=== PATIENT | male | born 1955 | race Caucasian/White ===

== ENCOUNTER → 2019-08-11 | Outpatient (CLI) | payer BC | END | disposition home or self-care (01) | LOC: LAB SHORT 15:59 → LAB EV 15:59 | DX: L97.529 Non-pressure chronic ulcer of other part of left foot with unspecified severity (principal) | CPT/HCPCS: 87070; 87077; 87147; 87186; 87205 ==

== ENCOUNTER 2019-09-12 08:38 | Day surgery (SDC) | payer BC | END 2019-09-12 23:26 | disposition home or self-care (01) | LOC: WOUND 08:38 | DX: E11.621 Type 2 diabetes mellitus with foot ulcer (principal); E11.40 Type 2 diabetes mellitus with diabetic neuropathy, unspecified; L97.522 Non-pressure chronic ulcer of other part of left foot with fat layer exposed; I10 Essential (primary) hypertension; G47.33 Obstructive sleep apnea (adult) (pediatric); E78.1 Pure hyperglyceridemia; Z79.899 Other long term (current) drug therapy; Z79.4 Long term (current) use of insulin | CPT/HCPCS: G0463 ==

== ENCOUNTER 2019-09-18 13:47 | Day surgery (SDC) | payer BC | END 2019-09-18 22:49 | disposition home or self-care (01) | LOC: WOUND 13:47 | DX: E11.621 Type 2 diabetes mellitus with foot ulcer (principal); L97.522 Non-pressure chronic ulcer of other part of left foot with fat layer exposed; E11.52 Type 2 diabetes mellitus with diabetic peripheral angiopathy with gangrene; I96 Gangrene, not elsewhere classified; E11.40 Type 2 diabetes mellitus with diabetic neuropathy, unspecified; E55.9 Vitamin D deficiency, unspecified; E78.1 Pure hyperglyceridemia; G47.33 Obstructive sleep apnea (adult) (pediatric); I10 Essential (primary) hypertension; I25.10 Atherosclerotic heart disease of native coronary artery without angina pectoris; E11.36 Type 2 diabetes mellitus with diabetic cataract; H26.9 Unspecified cataract; M10.9 Gout, unspecified; F41.8 Other specified anxiety disorders ==

== ENCOUNTER 2019-09-24 00:16 | Day surgery (SDC) | payer BC | END 2019-09-24 23:03 | disposition home or self-care (01) | LOC: WOUND 00:16 | DX: E11.621 Type 2 diabetes mellitus with foot ulcer (principal); E11.40 Type 2 diabetes mellitus with diabetic neuropathy, unspecified; L97.422 Non-pressure chronic ulcer of left heel and midfoot with fat layer exposed; G47.33 Obstructive sleep apnea (adult) (pediatric); I10 Essential (primary) hypertension; I25.10 Atherosclerotic heart disease of native coronary artery without angina pectoris | CPT/HCPCS: 87070; 87075; 87205 ==

== ENCOUNTER 2019-10-01 00:25 | Day surgery (SDC) | payer BC | END 2019-10-01 22:48 | disposition home or self-care (01) | LOC: WOUND 00:25 | DX: E11.621 Type 2 diabetes mellitus with foot ulcer (principal); L97.522 Non-pressure chronic ulcer of other part of left foot with fat layer exposed; E11.52 Type 2 diabetes mellitus with diabetic peripheral angiopathy with gangrene; I96 Gangrene, not elsewhere classified; S90.422A Blister (nonthermal), left great toe, initial encounter; E11.40 Type 2 diabetes mellitus with diabetic neuropathy, unspecified; E55.9 Vitamin D deficiency, unspecified; E78.1 Pure hyperglyceridemia; G47.33 Obstructive sleep apnea (adult) (pediatric); I10 Essential (primary) hypertension; I25.10 Atherosclerotic heart disease of native coronary artery without angina pectoris; E11.36 Type 2 diabetes mellitus with diabetic cataract; H26.9 Unspecified cataract; M10.9 Gout, unspecified; F41.8 Other specified anxiety disorders; X58.XXXA Exposure to other specified factors, initial encounter | CPT/HCPCS: Q4196 ==

== ENCOUNTER 2019-10-08 00:21 | Day surgery (SDC) | payer BC, OTHER | END 2019-10-08 23:02 | disposition home or self-care (01) | LOC: WOUND 00:21 | DX: E11.621 Type 2 diabetes mellitus with foot ulcer (principal); E11.40 Type 2 diabetes mellitus with diabetic neuropathy, unspecified; L97.522 Non-pressure chronic ulcer of other part of left foot with fat layer exposed; G47.33 Obstructive sleep apnea (adult) (pediatric); I25.10 Atherosclerotic heart disease of native coronary artery without angina pectoris; I10 Essential (primary) hypertension; Z79.899 Other long term (current) drug therapy ==

== ENCOUNTER 2019-10-15 00:19 | Day surgery (SDC) | payer BC | END 2019-10-15 22:58 | disposition home or self-care (01) | LOC: WOUND 00:19 | DX: E11.621 Type 2 diabetes mellitus with foot ulcer (principal); E11.40 Type 2 diabetes mellitus with diabetic neuropathy, unspecified; L97.529 Non-pressure chronic ulcer of other part of left foot with unspecified severity ==

== ENCOUNTER → 2019-10-28 | Day surgery (SDC) | payer BC | LOC: WOUND 12:23 | DX: L03.032 Cellulitis of left toe (principal); E11.621 Type 2 diabetes mellitus with foot ulcer; L97.522 Non-pressure chronic ulcer of other part of left foot with fat layer exposed; E11.40 Type 2 diabetes mellitus with diabetic neuropathy, unspecified; I10 Essential (primary) hypertension; G47.33 Obstructive sleep apnea (adult) (pediatric); I25.10 Atherosclerotic heart disease of native coronary artery without angina pectoris | CPT/HCPCS: 87071; 87075; 87076; 87147; 87185; 87186; 87205 ==

== ENCOUNTER 2019-11-05 01:54 | Day surgery (SDC) | payer BC | END 2019-11-05 03:35 | disposition home or self-care (01) | LOC: WOUND 01:54 | DX: E11.621 Type 2 diabetes mellitus with foot ulcer (principal); L97.522 Non-pressure chronic ulcer of other part of left foot with fat layer exposed; E11.40 Type 2 diabetes mellitus with diabetic neuropathy, unspecified; I10 Essential (primary) hypertension; I25.10 Atherosclerotic heart disease of native coronary artery without angina pectoris ==

== ENCOUNTER 2019-11-19 00:08 | Day surgery (SDC) | payer BC | END 2019-11-19 22:54 | disposition home or self-care (01) | LOC: WOUND 00:08 | DX: E11.621 Type 2 diabetes mellitus with foot ulcer (principal); E11.40 Type 2 diabetes mellitus with diabetic neuropathy, unspecified; L97.521 Non-pressure chronic ulcer of other part of left foot limited to breakdown of skin ==

== ENCOUNTER 2019-12-03 00:16 | Day surgery (SDC) | payer BC | END 2019-12-03 22:50 | disposition home or self-care (01) | LOC: WOUND 00:16 | DX: E11.621 Type 2 diabetes mellitus with foot ulcer (principal); E11.40 Type 2 diabetes mellitus with diabetic neuropathy, unspecified; I10 Essential (primary) hypertension; G47.33 Obstructive sleep apnea (adult) (pediatric); L97.522 Non-pressure chronic ulcer of other part of left foot with fat layer exposed ==

== ENCOUNTER 2019-12-29 17:24 | Emergency (ER) | payer BC, OTHER ==
[~2019-12-29] VITALS: Ht 182.9 cm; Wt 90.7 kg
[2019-12-29] MEDS ORDERED: LIPITOR80 MG PO (17:47)
[2019-12-29] MEDS ORDERED: LOSARTAN POTAS100 M1 PO (17:47)
[2019-12-29] MEDS ORDERED: AMLODIPINE BESYL5 MG PO (17:47)
[2019-12-29] MEDS ORDERED: METFORMIN HCL500 M3 PO (17:48)
[2019-12-29] MEDS ORDERED: ALLO300 PO (17:48)
[2019-12-29] MEDS ORDERED: Humulin N100 UNIT/1 SC (17:48)
[2019-12-29] MEDS ORDERED: ESOMEPRAZOLE MA40 MG PO (17:49)
[2019-12-29] MEDS ORDERED: FENO160 PO (17:49)
[2019-12-29] MEDS ORDERED: Novolin R100 UNIT/M SC (17:54)
[2019-12-29] MEDS ORDERED: ASPI325EC PO (17:55)
[2019-12-29] MEDS ORDERED: Carvedilol25 MG PO (17:55)
[2019-12-29 17:57] LABS: BASOPHILS ABSOLUTE AUTO 0.04 K/mm3 (0.00-0.23); BASOPHILS PERCENT AUTO 1 % (0-2); EOSINOPHILS ABSOLUTE AUTO 0.02 K/mm3 (0.00-0.68); EOSINOPHILS PERCENT AUTO 0 % (0-6); Hemoglobin 11.9 g/dL (13.5-17.5); IMMATURE GRAN ABSOLUTE AUTO 0.02 K/mm3 (0.00-0.10); IMMATURE GRAN PERCENT AUTO 0 % (0-1); LYMPHOCYTES ABSOLUTE AUTO 0.94 K/mm3 (0.84-5.20); LYMPHOCYTES PERCENT AUTO 13 % (21-46); MONOCYTES ABSOLUTE AUTO 0.92 K/mm3 (0.16-1.47); MONOCYTES PERCENT AUTO 13 % (4-13); Mean Corpuscular HGB 27.9 pg (26.0-34.0); Mean Corpuscular HGB Conc 32.2 g/dL (31.5-36.5); Mean Corpuscular Volume 87 fL (80-100); NEUTROPHILS ABSOLUTE AUTO 5.26 K/mm3 (1.96-9.15); NEUTROPHILS PERCENT AUTO 73 % (41-73); Platelet Count 198 K/mm3 (150-400); RDW Coefficient Variation 14.7 % (11.7-14.2); RDW Standard Deviation 46.8 fL (35.1-46.3); Red Blood Cell Count 4.27 M/mm3 (4.30-5.90)
[2019-12-29 18:18] LABS: Alanine Aminotransfer (ALT/SGP 46 U/L (12-78); Albumin, Blood 3.5 g/dL (3.4-5.0); Albumin/Globulin Ratio 0.8 (0.8-1.8); Alk Phos 59 U/L (50-136); Anion Gap 5 mmol/L (6-16); Aspartate Aminotrans (AST/SGOT 49 U/L (12-37); Bilirubin, Total 0.7 mg/dL (0.1-1.0); Blood Urea Nitrogen 19 mg/dL (8-24); Bun/Creatinine Ratio 26.9 (12.0-20.0); CO2, Blood 27 mmol/L (21-32); Calcium, Blood 8.9 mg/dL (8.5-10.1); Chloride, Blood 100 mmol/L (98-108); Creatinine, Blood 0.71 mg/dL (0.60-1.20); Globulin, Blood 4.2 g/dL (2.2-4.0); Glomerular Filtration Rate >60 (60-); Glucose, Blood 243 mg/dL (70-99); Sodium, Blood 132 mmol/L (136-145); Total Protein, Blood 7.7 g/dL (6.4-8.2)
[2019-12-29] MEDS ORDERED: CEPH500 PO (18:28)
[2019-12-29] MEDS ORDERED: Bactrim Ds Tab1 EACH PO (18:28)
== END 2019-12-29 19:00 | disposition home or self-care (01) ==
LOC: ER 17:24
PROVIDERS: Emergency Medicine
DX: L03.116 Cellulitis of left lower limb (principal); S91.101A Unspecified open wound of right great toe without damage to nail, initial encounter; E11.9 Type 2 diabetes mellitus without complications; X58.XXXA Exposure to other specified factors, initial encounter; Z79.899 Other long term (current) drug therapy; Z79.82 Long term (current) use of aspirin
CPT/HCPCS: 36415; 73620; 80053; 83605; 85025; 96365; 99283-25; J0690; J7120

== ENCOUNTER 2020-01-01 08:27 | Day surgery (SDC) | payer BC ==
[~2020-01-01 08:27] MED LIST: ALLO300 PO; AMLODIPINE BESYL5 MG PO; ASPI325EC PO; Bactrim Ds Tab1 EACH PO; CEPH500 PO; Carvedilol25 MG PO; ESOMEPRAZOLE MA40 MG PO; FENO160 PO; Humulin N100 UNIT/1 SC; LIPITOR80 MG PO; LOSARTAN POTAS100 M1 PO; METFORMIN HCL500 M3 PO; Novolin R100 UNIT/M SC
[2020-01-01] MEDS ORDERED: METR500 (10:44)
[2020-01-01] MEDS ORDERED: HYDR1TAB94 PO (10:52)
[2020-01-01 11:53] LABS: BASOPHILS ABSOLUTE AUTO 0.04 K/mm3 (0.00-0.23); BASOPHILS PERCENT AUTO 1 % (0-2); EOSINOPHILS ABSOLUTE AUTO 0.07 K/mm3 (0.00-0.68); EOSINOPHILS PERCENT AUTO 1 % (0-6); Hematocrit 35.3 % (37.0-53.0); Hemoglobin 11.5 g/dL (13.5-17.5); IMMATURE GRAN ABSOLUTE AUTO 0.02 K/mm3 (0.00-0.10); IMMATURE GRAN PERCENT AUTO 0 % (0-1); LYMPHOCYTES ABSOLUTE AUTO 1.06 K/mm3 (0.84-5.20); LYMPHOCYTES PERCENT AUTO 18 % (21-46); MONOCYTES ABSOLUTE AUTO 0.61 K/mm3 (0.16-1.47); MONOCYTES PERCENT AUTO 11 % (4-13); Mean Corpuscular HGB 28.4 pg (26.0-34.0); Mean Corpuscular HGB Conc 32.6 g/dL (31.5-36.5); Mean Corpuscular Volume 87 fL (80-100); Mean Platelet Volume 11.9 fL (9.1-12.4); NEUTROPHILS ABSOLUTE AUTO 4.01 K/mm3 (1.96-9.15); NEUTROPHILS PERCENT AUTO 69 % (41-73); Platelet Count 232 K/mm3 (150-400); RDW Coefficient Variation 14.8 % (11.7-14.2); RDW Standard Deviation 47.6 fL (35.1-46.3); Red Blood Cell Count 4.05 M/mm3 (4.30-5.90); White Blood Cell Count 5.81 K/mm3 (4.00-11.30)
== END 2020-01-01 10:56 | disposition home or self-care (01) ==
LOC: RAD 08:27 → ATC 08:27
PROVIDERS: Nurse Practitioner Family
DX: L03.116 Cellulitis of left lower limb (principal); E11.621 Type 2 diabetes mellitus with foot ulcer; E11.40 Type 2 diabetes mellitus with diabetic neuropathy, unspecified
CPT/HCPCS: 73590; 73620; 85025; 85651; 86140; 96365; J0696

== ENCOUNTER 2020-01-03 00:50 | Day surgery (SDC) | payer BC ==
[~2020-01-03 00:50] MED LIST changes: +HYDR1TAB94 PO; +METR500
[2020-01-04] MEDS ORDERED: Rocephin 1g1 G/50 ML IV (11:18)
== END 2020-01-03 23:14 | disposition home or self-care (01) ==
LOC: WOUND 00:50
DX: E11.621 Type 2 diabetes mellitus with foot ulcer (principal); E11.59 Type 2 diabetes mellitus with other circulatory complications; E11.40 Type 2 diabetes mellitus with diabetic neuropathy, unspecified; L02.91 Cutaneous abscess, unspecified; L03.116 Cellulitis of left lower limb; L03.032 Cellulitis of left toe; L97.421 Non-pressure chronic ulcer of left heel and midfoot limited to breakdown of skin; L97.521 Non-pressure chronic ulcer of other part of left foot limited to breakdown of skin; Z79.899 Other long term (current) drug therapy; Z79.4 Long term (current) use of insulin

== ENCOUNTER 2020-01-04 00:08 | Day surgery (SDC) | payer BC ==
[2020-01-04] MEDS ORDERED: Rocephin 1g1 G/50 ML IV (11:18)
== END 2020-01-04 10:55 | disposition home or self-care (01) ==
LOC: ATC 00:08
DX: E11.621 Type 2 diabetes mellitus with foot ulcer (principal); E11.40 Type 2 diabetes mellitus with diabetic neuropathy, unspecified; L03.116 Cellulitis of left lower limb
CPT/HCPCS: J0696

== ENCOUNTER 2020-01-06 00:05 | Day surgery (SDC) | payer BC ==
[~2020-01-06 00:05] MED LIST changes: +Rocephin 1g1 G/50 ML IV
== END 2020-01-06 10:50 | disposition home or self-care (01) ==
LOC: ATC 00:05
DX: E11.621 Type 2 diabetes mellitus with foot ulcer (principal); E11.40 Type 2 diabetes mellitus with diabetic neuropathy, unspecified; L03.116 Cellulitis of left lower limb; Z79.4 Long term (current) use of insulin
CPT/HCPCS: J0696

== ENCOUNTER 2020-01-07 00:36 | Day surgery (SDC) | payer BC | END 2020-01-07 22:39 | disposition home or self-care (01) | LOC: WOUND 00:36 | DX: E11.621 Type 2 diabetes mellitus with foot ulcer (principal); L97.522 Non-pressure chronic ulcer of other part of left foot with fat layer exposed; E11.59 Type 2 diabetes mellitus with other circulatory complications; L03.032 Cellulitis of left toe; L02.91 Cutaneous abscess, unspecified; E11.40 Type 2 diabetes mellitus with diabetic neuropathy, unspecified; E55.9 Vitamin D deficiency, unspecified; E78.1 Pure hyperglyceridemia; G47.33 Obstructive sleep apnea (adult) (pediatric); I10 Essential (primary) hypertension; I25.10 Atherosclerotic heart disease of native coronary artery without angina pectoris ==

== ENCOUNTER 2020-01-08 00:05 | Day surgery (SDC) | payer BC | END 2020-01-08 11:00 | disposition home or self-care (01) | LOC: ATC 00:05 | DX: E11.621 Type 2 diabetes mellitus with foot ulcer (principal); E11.40 Type 2 diabetes mellitus with diabetic neuropathy, unspecified; L03.116 Cellulitis of left lower limb; L97.509 Non-pressure chronic ulcer of other part of unspecified foot with unspecified severity; Z79.4 Long term (current) use of insulin; Z79.899 Other long term (current) drug therapy | CPT/HCPCS: 96365; J0696 ==

== ENCOUNTER 2020-01-09 00:03 | Day surgery (SDC) | payer BC | END 2020-01-09 10:06 | disposition home or self-care (01) | LOC: ATC 00:03 | DX: E11.621 Type 2 diabetes mellitus with foot ulcer (principal); E11.40 Type 2 diabetes mellitus with diabetic neuropathy, unspecified; L03.116 Cellulitis of left lower limb; Z79.4 Long term (current) use of insulin; L97.529 Non-pressure chronic ulcer of other part of left foot with unspecified severity | CPT/HCPCS: 96365; J0696 ==

== ENCOUNTER 2020-01-13 00:13 | Day surgery (SDC) | payer BC | END 2020-01-13 10:55 | disposition home or self-care (01) | LOC: ATC 00:13 | DX: E11.621 Type 2 diabetes mellitus with foot ulcer (principal); L97.509 Non-pressure chronic ulcer of other part of unspecified foot with unspecified severity; E11.40 Type 2 diabetes mellitus with diabetic neuropathy, unspecified; L03.116 Cellulitis of left lower limb | CPT/HCPCS: J0696 ==

== ENCOUNTER 2020-01-14 00:09 | Day surgery (SDC) | payer BC | END 2020-01-14 22:38 | disposition home or self-care (01) | LOC: WOUND 00:09 | DX: E11.621 Type 2 diabetes mellitus with foot ulcer (principal); E11.59 Type 2 diabetes mellitus with other circulatory complications; E11.40 Type 2 diabetes mellitus with diabetic neuropathy, unspecified; L02.91 Cutaneous abscess, unspecified; L03.032 Cellulitis of left toe; G47.33 Obstructive sleep apnea (adult) (pediatric); I10 Essential (primary) hypertension; L97.522 Non-pressure chronic ulcer of other part of left foot with fat layer exposed; Z79.899 Other long term (current) drug therapy; Z79.4 Long term (current) use of insulin; Z79.82 Long term (current) use of aspirin ==

== ENCOUNTER 2020-01-15 00:09 | Day surgery (SDC) | payer BC | END 2020-01-15 10:14 | disposition home or self-care (01) | LOC: ATC 00:09 | DX: E11.621 Type 2 diabetes mellitus with foot ulcer (principal); E11.40 Type 2 diabetes mellitus with diabetic neuropathy, unspecified; L03.116 Cellulitis of left lower limb; I25.10 Atherosclerotic heart disease of native coronary artery without angina pectoris; I10 Essential (primary) hypertension; F41.8 Other specified anxiety disorders; Z95.1 Presence of aortocoronary bypass graft; Z79.899 Other long term (current) drug therapy; Z79.4 Long term (current) use of insulin | CPT/HCPCS: 96365; J0696 ==

== ENCOUNTER 2020-01-16 00:11 | Day surgery (SDC) | payer BC | END 2020-01-16 10:55 | disposition home or self-care (01) | LOC: ATC 00:11 | DX: E11.621 Type 2 diabetes mellitus with foot ulcer (principal); E11.40 Type 2 diabetes mellitus with diabetic neuropathy, unspecified; L03.116 Cellulitis of left lower limb; F41.9 Anxiety disorder, unspecified; L97.529 Non-pressure chronic ulcer of other part of left foot with unspecified severity; Z79.4 Long term (current) use of insulin | CPT/HCPCS: 96365 ==

== ENCOUNTER 2020-01-17 00:08 | Day surgery (SDC) | payer BC | END 2020-01-17 09:13 | disposition home or self-care (01) | LOC: ATC 00:08 | DX: E11.621 Type 2 diabetes mellitus with foot ulcer (principal); E11.40 Type 2 diabetes mellitus with diabetic neuropathy, unspecified; L03.116 Cellulitis of left lower limb; L97.529 Non-pressure chronic ulcer of other part of left foot with unspecified severity; Z79.4 Long term (current) use of insulin | CPT/HCPCS: J0696 ==

== ENCOUNTER 2020-01-18 01:08 | Day surgery (SDC) | payer BC | END 2020-01-18 10:35 | disposition home or self-care (01) | LOC: ATC 01:08 | DX: E11.621 Type 2 diabetes mellitus with foot ulcer (principal); E11.40 Type 2 diabetes mellitus with diabetic neuropathy, unspecified; L03.116 Cellulitis of left lower limb; L97.529 Non-pressure chronic ulcer of other part of left foot with unspecified severity; Z79.4 Long term (current) use of insulin | CPT/HCPCS: J0696 ==

== ENCOUNTER 2020-01-19 01:52 | Day surgery (SDC) | payer BC | END 2020-01-19 10:27 | disposition home or self-care (01) | LOC: ATC 01:52 | DX: L03.032 Cellulitis of left toe (principal); E11.621 Type 2 diabetes mellitus with foot ulcer; E11.40 Type 2 diabetes mellitus with diabetic neuropathy, unspecified; E11.59 Type 2 diabetes mellitus with other circulatory complications | CPT/HCPCS: 96365; J0696 ==

== ENCOUNTER 2020-01-20 00:17 | Day surgery (SDC) | payer BC | END 2020-01-20 10:40 | disposition home or self-care (01) | LOC: ATC 00:17 | DX: L03.032 Cellulitis of left toe (principal); E11.59 Type 2 diabetes mellitus with other circulatory complications; E11.621 Type 2 diabetes mellitus with foot ulcer; E11.40 Type 2 diabetes mellitus with diabetic neuropathy, unspecified; L02.91 Cutaneous abscess, unspecified | CPT/HCPCS: 96365; J0696 ==

== ENCOUNTER 2020-01-21 00:13 | Day surgery (SDC) | payer BC | END 2020-01-21 22:54 | disposition home or self-care (01) | LOC: WOUND 00:13 | DX: E11.621 Type 2 diabetes mellitus with foot ulcer (principal); L97.529 Non-pressure chronic ulcer of other part of left foot with unspecified severity; L02.91 Cutaneous abscess, unspecified; L03.032 Cellulitis of left toe; E11.59 Type 2 diabetes mellitus with other circulatory complications; E11.40 Type 2 diabetes mellitus with diabetic neuropathy, unspecified; I25.10 Atherosclerotic heart disease of native coronary artery without angina pectoris; I10 Essential (primary) hypertension; Z79.899 Other long term (current) drug therapy; Z79.82 Long term (current) use of aspirin; Z79.4 Long term (current) use of insulin | CPT/HCPCS: G0463 ==

== ENCOUNTER 2020-01-22 00:03 | Day surgery (SDC) | payer BC ==
[2020-01-25] MEDS ORDERED: TOUJEO SOL300 UNIT/1 SQ (10:20)
[2020-01-25] MEDS ORDERED: Novolog100 UNIT/1 SQ (10:21)
== END 2020-01-22 10:41 | disposition home or self-care (01) ==
LOC: ATC 00:03
DX: L03.032 Cellulitis of left toe (principal); E11.621 Type 2 diabetes mellitus with foot ulcer; L97.509 Non-pressure chronic ulcer of other part of unspecified foot with unspecified severity; E11.40 Type 2 diabetes mellitus with diabetic neuropathy, unspecified; E11.59 Type 2 diabetes mellitus with other circulatory complications; L02.91 Cutaneous abscess, unspecified
CPT/HCPCS: 96365; J0696

== ENCOUNTER 2020-01-23 00:08 | Day surgery (SDC) | payer BC ==
[2020-01-25] MEDS ORDERED: TOUJEO SOL300 UNIT/1 SQ (10:20)
[2020-01-25] MEDS ORDERED: Novolog100 UNIT/1 SQ (10:21)
== END 2020-01-23 10:00 | disposition home or self-care (01) ==
LOC: ATC 00:08
DX: E11.621 Type 2 diabetes mellitus with foot ulcer (principal); E11.40 Type 2 diabetes mellitus with diabetic neuropathy, unspecified; L03.116 Cellulitis of left lower limb; L03.032 Cellulitis of left toe; Z79.4 Long term (current) use of insulin; L97.509 Non-pressure chronic ulcer of other part of unspecified foot with unspecified severity
CPT/HCPCS: 96365; J0696

== ENCOUNTER 2020-01-24 00:07 | Day surgery (SDC) | payer BC ==
[2020-01-25] MEDS ORDERED: TOUJEO SOL300 UNIT/1 SQ (10:20)
[2020-01-25] MEDS ORDERED: Novolog100 UNIT/1 SQ (10:21)
== END 2020-01-24 09:26 | disposition home or self-care (01) ==
LOC: ATC 00:07
DX: E11.621 Type 2 diabetes mellitus with foot ulcer (principal); E11.40 Type 2 diabetes mellitus with diabetic neuropathy, unspecified; L03.116 Cellulitis of left lower limb; L03.032 Cellulitis of left toe; L97.509 Non-pressure chronic ulcer of other part of unspecified foot with unspecified severity; Z79.4 Long term (current) use of insulin
CPT/HCPCS: 96365; J0696

== ENCOUNTER 2020-01-28 00:06 | Day surgery (SDC) | payer BC ==
[~2020-01-28 00:06] MED LIST changes: +Novolog100 UNIT/1 SQ; +TOUJEO SOL300 UNIT/1 SQ
== END 2020-01-28 10:55 | disposition home or self-care (01) ==
DX: L03.032 Cellulitis of left toe (principal); L02.91 Cutaneous abscess, unspecified; E11.621 Type 2 diabetes mellitus with foot ulcer; L97.509 Non-pressure chronic ulcer of other part of unspecified foot with unspecified severity; E11.40 Type 2 diabetes mellitus with diabetic neuropathy, unspecified; E11.59 Type 2 diabetes mellitus with other circulatory complications; M79.675 Pain in left toe(s)

== ENCOUNTER 2020-01-29 08:08 | Day surgery (SDC) | payer BC ==
--- NOTE | 2020-01-29 14:46 | NUR ---
SPOKE WITH HERMAN BENITES INSIDE ACCOUNT EXECUTIVE-C ABOUT TODAY BEING THE LAST DAY FOR ANTIBIOTICS. HERMAN WOULD LIKE PT TO DO 2 MORE WEEKS OF IV ANTIBIOTICS. PT IN AGREEMENT OF THIS PLAN.
== END 2020-01-29 14:23 | disposition home or self-care (01) ==
LOC: ATC 08:08
DX: E11.621 Type 2 diabetes mellitus with foot ulcer (principal); E11.40 Type 2 diabetes mellitus with diabetic neuropathy, unspecified; L03.116 Cellulitis of left lower limb; E11.59 Type 2 diabetes mellitus with other circulatory complications; L97.509 Non-pressure chronic ulcer of other part of unspecified foot with unspecified severity; Z79.4 Long term (current) use of insulin
CPT/HCPCS: 96365; J0696

== ENCOUNTER 2020-01-30 00:04 | Day surgery (SDC) | payer BC | END 2020-01-30 09:29 | disposition home or self-care (01) | LOC: ATC 00:04 | DX: E11.621 Type 2 diabetes mellitus with foot ulcer (principal); E11.40 Type 2 diabetes mellitus with diabetic neuropathy, unspecified; L03.116 Cellulitis of left lower limb; L97.509 Non-pressure chronic ulcer of other part of unspecified foot with unspecified severity; Z79.4 Long term (current) use of insulin | CPT/HCPCS: 96365; J0696 ==

== ENCOUNTER 2020-02-02 02:02 | Day surgery (SDC) | payer BC, OTHER | END 2020-02-02 08:37 | disposition home or self-care (01) | LOC: ATC 02:02 | DX: E11.621 Type 2 diabetes mellitus with foot ulcer (principal); L02.91 Cutaneous abscess, unspecified; L97.509 Non-pressure chronic ulcer of other part of unspecified foot with unspecified severity; L03.116 Cellulitis of left lower limb; E11.59 Type 2 diabetes mellitus with other circulatory complications; E11.40 Type 2 diabetes mellitus with diabetic neuropathy, unspecified | CPT/HCPCS: 96365; J0696 ==

== ENCOUNTER 2020-02-04 00:06 | Day surgery (SDC) | payer BC, OTHER | END 2020-02-04 08:35 | disposition home or self-care (01) | LOC: ATC 00:06 | DX: E11.621 Type 2 diabetes mellitus with foot ulcer (principal); E11.40 Type 2 diabetes mellitus with diabetic neuropathy, unspecified; L03.116 Cellulitis of left lower limb; L97.509 Non-pressure chronic ulcer of other part of unspecified foot with unspecified severity; Z79.4 Long term (current) use of insulin | CPT/HCPCS: 96365; J0696 ==

== ENCOUNTER 2020-02-04 00:09 | Day surgery (SDC) | payer BC, OTHER | END 2020-02-04 22:55 | disposition home or self-care (01) | LOC: WOUND 00:09 | DX: E11.621 Type 2 diabetes mellitus with foot ulcer (principal); E11.40 Type 2 diabetes mellitus with diabetic neuropathy, unspecified; E11.59 Type 2 diabetes mellitus with other circulatory complications; L02.91 Cutaneous abscess, unspecified; L03.032 Cellulitis of left toe; I10 Essential (primary) hypertension; L97.522 Non-pressure chronic ulcer of other part of left foot with fat layer exposed; Z79.899 Other long term (current) drug therapy; Z79.82 Long term (current) use of aspirin; Z79.4 Long term (current) use of insulin ==

== ENCOUNTER 2020-02-05 00:07 | Day surgery (SDC) | payer BC, OTHER ==
[2020-02-05 08:47] LABS: BASOPHILS ABSOLUTE AUTO 0.04 K/mm3 (0.00-0.23); BASOPHILS PERCENT AUTO 1 % (0-2); EOSINOPHILS PERCENT AUTO 2 % (0-6); Hematocrit 38.8 % (37.0-53.0); Hemoglobin 12.5 g/dL (13.5-17.5); IMMATURE GRAN ABSOLUTE AUTO 0.03 K/mm3 (0.00-0.10); IMMATURE GRAN PERCENT AUTO 1 % (0-1); LYMPHOCYTES ABSOLUTE AUTO 1.39 K/mm3 (0.84-5.20); LYMPHOCYTES PERCENT AUTO 26 % (21-46); MONOCYTES ABSOLUTE AUTO 0.43 K/mm3 (0.16-1.47); MONOCYTES PERCENT AUTO 8 % (4-13); Mean Corpuscular HGB 28.3 pg (26.0-34.0); Mean Corpuscular HGB Conc 32.2 g/dL (31.5-36.5); Mean Corpuscular Volume 88 fL (80-100); Mean Platelet Volume 11.6 fL (9.1-12.4); NEUTROPHILS ABSOLUTE AUTO 3.43 K/mm3 (1.96-9.15); NEUTROPHILS PERCENT AUTO 63 % (41-73); Platelet Count 228 K/mm3 (150-400); RDW Coefficient Variation 14.4 % (11.7-14.2); RDW Standard Deviation 45.9 fL (35.1-46.3); Red Blood Cell Count 4.42 M/mm3 (4.30-5.90); White Blood Cell Count 5.42 K/mm3 (4.00-11.30)
== END 2020-02-05 08:35 | disposition home or self-care (01) ==
LOC: ATC 00:07
PROVIDERS: Nurse Practitioner Family
DX: E11.621 Type 2 diabetes mellitus with foot ulcer (principal); L97.509 Non-pressure chronic ulcer of other part of unspecified foot with unspecified severity; E11.40 Type 2 diabetes mellitus with diabetic neuropathy, unspecified; L03.116 Cellulitis of left lower limb; E11.59 Type 2 diabetes mellitus with other circulatory complications; L02.91 Cutaneous abscess, unspecified
CPT/HCPCS: 85025; 85651; 86140; 96365; J0696

== ENCOUNTER 2020-02-06 07:53 | Day surgery (SDC) | payer BC | END 2020-02-06 08:33 | disposition home or self-care (01) | LOC: ATC 07:53 | DX: E11.621 Type 2 diabetes mellitus with foot ulcer (principal); E11.40 Type 2 diabetes mellitus with diabetic neuropathy, unspecified; L03.116 Cellulitis of left lower limb; L97.509 Non-pressure chronic ulcer of other part of unspecified foot with unspecified severity; Z79.4 Long term (current) use of insulin | CPT/HCPCS: 96365; J0696 ==

== ENCOUNTER 2020-02-07 00:44 | Day surgery (SDC) | payer BC, OTHER | END 2020-02-07 08:43 | disposition home or self-care (01) | LOC: ATC 00:44 | DX: E11.621 Type 2 diabetes mellitus with foot ulcer (principal); E11.40 Type 2 diabetes mellitus with diabetic neuropathy, unspecified; L03.116 Cellulitis of left lower limb; L97.509 Non-pressure chronic ulcer of other part of unspecified foot with unspecified severity; Z79.4 Long term (current) use of insulin | CPT/HCPCS: 96365; J0696 ==

== ENCOUNTER 2020-02-08 07:56 | Day surgery (SDC) | payer BC, OTHER | END 2020-02-08 08:33 | disposition home or self-care (01) | LOC: ATC 07:56 | DX: E11.621 Type 2 diabetes mellitus with foot ulcer (principal); E11.40 Type 2 diabetes mellitus with diabetic neuropathy, unspecified; L03.116 Cellulitis of left lower limb; Z79.4 Long term (current) use of insulin; L97.509 Non-pressure chronic ulcer of other part of unspecified foot with unspecified severity | CPT/HCPCS: 96365; J0696 ==

== ENCOUNTER 2020-02-09 00:07 | Day surgery (SDC) | payer BC, OTHER | END 2020-02-09 08:31 | disposition home or self-care (01) | LOC: ATC 00:07 | DX: E11.621 Type 2 diabetes mellitus with foot ulcer (principal); L97.509 Non-pressure chronic ulcer of other part of unspecified foot with unspecified severity; E11.40 Type 2 diabetes mellitus with diabetic neuropathy, unspecified; L03.116 Cellulitis of left lower limb; L02.91 Cutaneous abscess, unspecified; E11.59 Type 2 diabetes mellitus with other circulatory complications | CPT/HCPCS: 96365; J0696 ==

== ENCOUNTER 2020-02-11 00:08 | Day surgery (SDC) | payer BC, OTHER ==
--- NOTE | 2020-02-11 08:55 | NUR ---
PT REPORTS HE WILL RETURN TO HAVE POWERGLIDE DC'D AFTER HIS WOUND CARE APPT. TODAY WAS LAST DAY OF BRITNI
== END 2020-02-11 08:40 | disposition home or self-care (01) ==
LOC: ATC 00:08
DX: E11.621 Type 2 diabetes mellitus with foot ulcer (principal); L97.509 Non-pressure chronic ulcer of other part of unspecified foot with unspecified severity; L02.91 Cutaneous abscess, unspecified; L03.116 Cellulitis of left lower limb; E11.40 Type 2 diabetes mellitus with diabetic neuropathy, unspecified; I25.10 Atherosclerotic heart disease of native coronary artery without angina pectoris; I10 Essential (primary) hypertension
CPT/HCPCS: 96365; J0696

== ENCOUNTER 2020-02-11 00:15 | Day surgery (SDC) | payer BC | END 2020-02-11 23:36 | disposition home or self-care (01) | LOC: WOUND 00:15 | DX: E11.621 Type 2 diabetes mellitus with foot ulcer (principal); L97.522 Non-pressure chronic ulcer of other part of left foot with fat layer exposed; E11.59 Type 2 diabetes mellitus with other circulatory complications; E11.40 Type 2 diabetes mellitus with diabetic neuropathy, unspecified; I25.10 Atherosclerotic heart disease of native coronary artery without angina pectoris; I10 Essential (primary) hypertension ==

== ENCOUNTER 2020-02-18 00:07 | Day surgery (SDC) | payer BC | END 2020-02-18 23:09 | disposition home or self-care (01) | LOC: WOUND 00:07 | DX: E11.621 Type 2 diabetes mellitus with foot ulcer (principal); E11.59 Type 2 diabetes mellitus with other circulatory complications; E11.40 Type 2 diabetes mellitus with diabetic neuropathy, unspecified; I10 Essential (primary) hypertension; G47.33 Obstructive sleep apnea (adult) (pediatric); L97.522 Non-pressure chronic ulcer of other part of left foot with fat layer exposed; Z79.899 Other long term (current) drug therapy; Z79.4 Long term (current) use of insulin ==

== ENCOUNTER 2020-02-25 00:21 | Day surgery (SDC) | payer BC | END 2020-02-25 22:39 | disposition home or self-care (01) | LOC: WOUND 00:21 | DX: E11.621 Type 2 diabetes mellitus with foot ulcer (principal); L97.529 Non-pressure chronic ulcer of other part of left foot with unspecified severity; E11.59 Type 2 diabetes mellitus with other circulatory complications; E11.40 Type 2 diabetes mellitus with diabetic neuropathy, unspecified; I25.10 Atherosclerotic heart disease of native coronary artery without angina pectoris; I10 Essential (primary) hypertension; F41.9 Anxiety disorder, unspecified; G47.30 Sleep apnea, unspecified ==

== ENCOUNTER 2020-03-03 00:18 | Day surgery (SDC) | payer BC | END 2020-03-03 23:17 | disposition home or self-care (01) | LOC: WOUND 00:18 | DX: E11.621 Type 2 diabetes mellitus with foot ulcer (principal); E11.59 Type 2 diabetes mellitus with other circulatory complications; E11.40 Type 2 diabetes mellitus with diabetic neuropathy, unspecified; G47.33 Obstructive sleep apnea (adult) (pediatric); I10 Essential (primary) hypertension; L97.522 Non-pressure chronic ulcer of other part of left foot with fat layer exposed; Z79.899 Other long term (current) drug therapy; Z79.4 Long term (current) use of insulin; Z79.82 Long term (current) use of aspirin ==

== ENCOUNTER 2020-03-17 00:11 | Day surgery (SDC) | payer BC, OTHER ==
[~2020-03-17 00:11] MED LIST changes: +NOVOLOG100 UNIT/3; -Novolog100 UNIT/1 SQ; -TOUJEO SOL300 UNIT/1 SQ; +TOUJEO SOL300 UNIT/2
== END 2020-03-17 22:42 | disposition home or self-care (01) ==
LOC: WOUND 00:11
DX: E11.621 Type 2 diabetes mellitus with foot ulcer (principal); E11.59 Type 2 diabetes mellitus with other circulatory complications; E11.40 Type 2 diabetes mellitus with diabetic neuropathy, unspecified; G47.33 Obstructive sleep apnea (adult) (pediatric); I10 Essential (primary) hypertension; L97.522 Non-pressure chronic ulcer of other part of left foot with fat layer exposed; Z79.899 Other long term (current) drug therapy; Z79.4 Long term (current) use of insulin; Z79.82 Long term (current) use of aspirin

== ENCOUNTER 2020-05-05 00:11 | Day surgery (SDC) | payer BC, OTHER | END 2020-05-05 23:14 | disposition home or self-care (01) | LOC: WOUND 00:11 | DX: E11.621 Type 2 diabetes mellitus with foot ulcer (principal); E11.59 Type 2 diabetes mellitus with other circulatory complications; E11.40 Type 2 diabetes mellitus with diabetic neuropathy, unspecified; L97.522 Non-pressure chronic ulcer of other part of left foot with fat layer exposed; I10 Essential (primary) hypertension; I25.10 Atherosclerotic heart disease of native coronary artery without angina pectoris; G47.33 Obstructive sleep apnea (adult) (pediatric); Z79.899 Other long term (current) drug therapy; Z79.82 Long term (current) use of aspirin; Z79.4 Long term (current) use of insulin ==

== ENCOUNTER 2020-05-19 00:27 | Day surgery (SDC) | payer BC, OTHER | END 2020-05-19 22:40 | disposition home or self-care (01) | LOC: WOUND 00:27 | DX: E11.621 Type 2 diabetes mellitus with foot ulcer (principal); L97.522 Non-pressure chronic ulcer of other part of left foot with fat layer exposed; E11.52 Type 2 diabetes mellitus with diabetic peripheral angiopathy with gangrene; I96 Gangrene, not elsewhere classified; E11.40 Type 2 diabetes mellitus with diabetic neuropathy, unspecified; E11.36 Type 2 diabetes mellitus with diabetic cataract; H26.9 Unspecified cataract; E11.59 Type 2 diabetes mellitus with other circulatory complications; E55.9 Vitamin D deficiency, unspecified; E78.1 Pure hyperglyceridemia; G47.33 Obstructive sleep apnea (adult) (pediatric); I10 Essential (primary) hypertension; I25.10 Atherosclerotic heart disease of native coronary artery without angina pectoris; H74.90 Unspecified disorder of middle ear and mastoid, unspecified ear; M10.9 Gout, unspecified; F41.8 Other specified anxiety disorders; Z79.4 Long term (current) use of insulin; Z79.82 Long term (current) use of aspirin; Z79.899 Other long term (current) drug therapy ==

== ENCOUNTER 2020-08-03 10:02 | Day surgery (SDC) | payer OTHER | END 2020-08-03 23:21 | disposition home or self-care (01) | LOC: WOUND 10:02 | DX: E11.621 Type 2 diabetes mellitus with foot ulcer (principal); L97.522 Non-pressure chronic ulcer of other part of left foot with fat layer exposed; E11.52 Type 2 diabetes mellitus with diabetic peripheral angiopathy with gangrene; I96 Gangrene, not elsewhere classified; E11.59 Type 2 diabetes mellitus with other circulatory complications; E11.40 Type 2 diabetes mellitus with diabetic neuropathy, unspecified; E55.9 Vitamin D deficiency, unspecified; G47.33 Obstructive sleep apnea (adult) (pediatric); I10 Essential (primary) hypertension; I25.10 Atherosclerotic heart disease of native coronary artery without angina pectoris; E11.36 Type 2 diabetes mellitus with diabetic cataract; H26.9 Unspecified cataract; H74.90 Unspecified disorder of middle ear and mastoid, unspecified ear; M10.9 Gout, unspecified; F41.8 Other specified anxiety disorders; E78.1 Pure hyperglyceridemia; Z79.82 Long term (current) use of aspirin; Z79.4 Long term (current) use of insulin; Z79.899 Other long term (current) drug therapy | CPT/HCPCS: G0463 ==

== ENCOUNTER 2020-08-20 00:17 | Day surgery (SDC) | payer OTHER | END 2020-08-20 23:17 | disposition home or self-care (01) | LOC: WOUND 00:17 | DX: E11.621 Type 2 diabetes mellitus with foot ulcer (principal); E11.59 Type 2 diabetes mellitus with other circulatory complications; E11.40 Type 2 diabetes mellitus with diabetic neuropathy, unspecified; I10 Essential (primary) hypertension; G47.33 Obstructive sleep apnea (adult) (pediatric); L97.522 Non-pressure chronic ulcer of other part of left foot with fat layer exposed; Z79.899 Other long term (current) drug therapy; Z79.82 Long term (current) use of aspirin; Z79.4 Long term (current) use of insulin | CPT/HCPCS: G0463 ==

== ENCOUNTER 2020-09-02 06:44 | Day surgery (SDC) | payer OTHER | END 2020-09-02 22:53 | disposition home or self-care (01) | LOC: WOUND 06:44 | DX: E11.621 Type 2 diabetes mellitus with foot ulcer (principal); L97.522 Non-pressure chronic ulcer of other part of left foot with fat layer exposed; L97.519 Non-pressure chronic ulcer of other part of right foot with unspecified severity; E11.52 Type 2 diabetes mellitus with diabetic peripheral angiopathy with gangrene; I96 Gangrene, not elsewhere classified; E11.59 Type 2 diabetes mellitus with other circulatory complications; E11.40 Type 2 diabetes mellitus with diabetic neuropathy, unspecified; E11.36 Type 2 diabetes mellitus with diabetic cataract; H26.9 Unspecified cataract; H74.90 Unspecified disorder of middle ear and mastoid, unspecified ear; G47.30 Sleep apnea, unspecified; I25.10 Atherosclerotic heart disease of native coronary artery without angina pectoris; F41.8 Other specified anxiety disorders; M10.9 Gout, unspecified; Z79.4 Long term (current) use of insulin; Z79.82 Long term (current) use of aspirin; Z79.899 Other long term (current) drug therapy ==

== ENCOUNTER → 2020-09-03 | Outpatient (CLI) | payer OTHER ==
[2020-09-04 11:51] LABS: Stool Occult Bld Immuno 1 Negative (NEGATIVE)
== END | disposition home or self-care (01) ==
LOC: LAB SHORT 08:10 → LAB EV 08:10 → LAB SHORT 13:37
PROVIDERS: Physician Assistant
DX: D64.9 Anemia, unspecified (principal)
CPT/HCPCS: 82274

== ENCOUNTER 2020-09-25 02:08 | Day surgery (SDC) | payer OTHER, SELFPAY ==
[2020-11-04] MEDS ORDERED: Nexium40 MG PO (14:06)
[2020-11-04] MEDS ORDERED: TRULICITY1.5 MG/0.1 SC (14:06)
[2020-11-04] MEDS ORDERED: TOUJEO SOL300 UNIT/2 SC (14:07)
== END 2020-09-25 23:57 | disposition home or self-care (01) ==
LOC: WOUND 02:08
DX: E11.621 Type 2 diabetes mellitus with foot ulcer (principal); L97.522 Non-pressure chronic ulcer of other part of left foot with fat layer exposed; L97.512 Non-pressure chronic ulcer of other part of right foot with fat layer exposed; L03.031 Cellulitis of right toe; E11.59 Type 2 diabetes mellitus with other circulatory complications; E11.40 Type 2 diabetes mellitus with diabetic neuropathy, unspecified; E55.9 Vitamin D deficiency, unspecified; E78.1 Pure hyperglyceridemia; G47.33 Obstructive sleep apnea (adult) (pediatric); I10 Essential (primary) hypertension; I25.10 Atherosclerotic heart disease of native coronary artery without angina pectoris

== ENCOUNTER 2020-10-02 00:29 | Day surgery (SDC) | payer OTHER, SELFPAY ==
[2020-11-04] MEDS ORDERED: TRULICITY1.5 MG/0.1 SC (14:06)
[2020-11-04] MEDS ORDERED: Nexium40 MG PO (14:06)
[2020-11-04] MEDS ORDERED: TOUJEO SOL300 UNIT/2 SC (14:07)
== END 2020-10-02 22:48 | disposition home or self-care (01) ==
LOC: WOUND 00:29
DX: E11.621 Type 2 diabetes mellitus with foot ulcer (principal); L97.522 Non-pressure chronic ulcer of other part of left foot with fat layer exposed; L97.512 Non-pressure chronic ulcer of other part of right foot with fat layer exposed; E11.59 Type 2 diabetes mellitus with other circulatory complications; E11.40 Type 2 diabetes mellitus with diabetic neuropathy, unspecified; L03.031 Cellulitis of right toe; G47.33 Obstructive sleep apnea (adult) (pediatric); I10 Essential (primary) hypertension; I25.10 Atherosclerotic heart disease of native coronary artery without angina pectoris

== ENCOUNTER 2020-10-14 00:13 | Day surgery (SDC) | payer OTHER, SELFPAY ==
[2020-11-04] MEDS ORDERED: TRULICITY1.5 MG/0.1 SC (14:06)
[2020-11-04] MEDS ORDERED: Nexium40 MG PO (14:06)
[2020-11-04] MEDS ORDERED: TOUJEO SOL300 UNIT/2 SC (14:07)
== END 2020-10-14 23:45 | disposition home or self-care (01) ==
LOC: WOUND 00:13
DX: E11.621 Type 2 diabetes mellitus with foot ulcer (principal); L97.521 Non-pressure chronic ulcer of other part of left foot limited to breakdown of skin; E11.59 Type 2 diabetes mellitus with other circulatory complications; E11.40 Type 2 diabetes mellitus with diabetic neuropathy, unspecified; L97.512 Non-pressure chronic ulcer of other part of right foot with fat layer exposed; E55.9 Vitamin D deficiency, unspecified; E78.1 Pure hyperglyceridemia; I10 Essential (primary) hypertension; G47.33 Obstructive sleep apnea (adult) (pediatric); I25.10 Atherosclerotic heart disease of native coronary artery without angina pectoris; L84 Corns and callosities
CPT/HCPCS: A9270

== ENCOUNTER 2020-10-26 00:28 | Day surgery (SDC) | payer OTHER ==
[2020-11-04] MEDS ORDERED: TRULICITY1.5 MG/0.1 SC (14:06)
[2020-11-04] MEDS ORDERED: Nexium40 MG PO (14:06)
[2020-11-04] MEDS ORDERED: TOUJEO SOL300 UNIT/2 SC (14:07)
== END 2020-10-26 23:59 | disposition home or self-care (01) ==
LOC: WOUND 00:28
DX: E11.621 Type 2 diabetes mellitus with foot ulcer (principal); L97.512 Non-pressure chronic ulcer of other part of right foot with fat layer exposed; E11.40 Type 2 diabetes mellitus with diabetic neuropathy, unspecified; E11.59 Type 2 diabetes mellitus with other circulatory complications; E78.1 Pure hyperglyceridemia; I10 Essential (primary) hypertension; I25.10 Atherosclerotic heart disease of native coronary artery without angina pectoris; L84 Corns and callosities; Z86.19 Personal history of other infectious and parasitic diseases

== ENCOUNTER 2020-11-05 06:02 | Day surgery (SDC) | payer OTHER ==
[~2020-11-05] VITALS: Ht 188 cm; Wt 123.0 kg
[~2020-11-05 06:02] MED LIST changes: +Nexium40 MG PO; +TOUJEO SOL300 UNIT/2 SC; +TRULICITY1.5 MG/0.1 SC
[2020-11-05 07:55] LABS: Anion Gap 6 mmol/L (6-16); Blood Urea Nitrogen 18 mg/dL (8-24); Bun/Creatinine Ratio 25.8 (12.0-20.0); CO2, Blood 29 mmol/L (21-32); Calcium, Blood 9.2 mg/dL (8.5-10.1); Chloride, Blood 105 mmol/L (98-108); Glomerular Filtration Rate >60 (60-); Glucose, Blood 142 mg/dL (70-99); Potassium, Blood 4.1 mmol/L (3.5-5.5); Sodium, Blood 140 mmol/L (136-145)
[2020-11-05 08:00] LABS: International Normalized Ratio 0.97; Prothrombin Time Results 10.4 Sec (9.7-11.5)
[2020-11-05 08:13] LABS: BASOPHILS ABSOLUTE AUTO 0.06 K/mm3 (0.00-0.23); BASOPHILS PERCENT AUTO 1 % (0-2); EOSINOPHILS ABSOLUTE AUTO 0.09 K/mm3 (0.00-0.68); EOSINOPHILS PERCENT AUTO 1 % (0-6); Hematocrit 40.7 % (37.0-53.0); Hemoglobin 13.4 g/dL (13.5-17.5); IMMATURE GRAN ABSOLUTE AUTO 0.04 K/mm3 (0.00-0.10); IMMATURE GRAN PERCENT AUTO 1 % (0-1); LYMPHOCYTES ABSOLUTE AUTO 1.46 K/mm3 (0.84-5.20); LYMPHOCYTES PERCENT AUTO 23 % (21-46); MONOCYTES ABSOLUTE AUTO 0.62 K/mm3 (0.16-1.47); MONOCYTES PERCENT AUTO 10 % (4-13); Mean Corpuscular HGB 27.2 pg (26.0-34.0); Mean Corpuscular HGB Conc 32.9 g/dL (31.5-36.5); Mean Corpuscular Volume 83 fL (80-100); NEUTROPHILS ABSOLUTE AUTO 4.07 K/mm3 (1.96-9.15); NEUTROPHILS PERCENT AUTO 64 % (41-73); RDW Coefficient Variation 14.8 % (11.7-14.2); RDW Standard Deviation 44.8 fL (35.1-46.3); Red Blood Cell Count 4.92 M/mm3 (4.30-5.90); White Blood Cell Count 6.34 K/mm3 (4.00-11.30)
[2020-11-05 08:14] LABS: Mean Platelet Volume 11.5 fL (9.1-12.4); Platelet Count 200 K/mm3 (150-400)
--- NOTE | 2020-11-05 09:49 | NUR ---
PT RETURNED TO PROCEDURE ROOM IN BED. LEFT FEMORAL GROIN SITE SOFT NON-TENDER WITH NO HEMATOMA, NO PULSATILE BLEEDING WITH SLIGHT TRACK OOZING NOTED INTACT DRESSING AND TEGADERM. CALL LIGHT IN REACH. PT DENIES BACK OR CHEST PAIN.
--- NOTE | 2020-11-05 12:24 | NUR ---
NO CHANGES TO LEFT GROIN SITE. DISCHARGE INSTRUCTIONS REVIEWED ALL QUESTIONS ANSWERED. 20 IV DISCONTINUED FROM LEFT AC WITH INTACT CANNULA. PT AMBULATED TO BR TO VOID. PT ESCORTED OUT VIA WHEELCHAIR ESCORT.
== END 2020-11-05 12:20 | disposition home or self-care (01) ==
LOC: MHTC 06:02
PROVIDERS: Radiology Diagnostic Radiology
DX: I70.213 Atherosclerosis of native arteries of extremities with intermittent claudication, bilateral legs (principal); I25.10 Atherosclerotic heart disease of native coronary artery without angina pectoris; E11.51 Type 2 diabetes mellitus with diabetic peripheral angiopathy without gangrene; E11.40 Type 2 diabetes mellitus with diabetic neuropathy, unspecified; I10 Essential (primary) hypertension; L97.511 Non-pressure chronic ulcer of other part of right foot limited to breakdown of skin; Z88.7 Allergy status to serum and vaccine; Z88.8 Allergy status to other drugs, medicaments and biological substances; Z79.82 Long term (current) use of aspirin; Z79.4 Long term (current) use of insulin
CPT/HCPCS: 37228; 37232; 75716; 75774; 80048; 85025; 85347; 85610; 99152; 99153; C1725; C1760; C1769; C1887; C1894; J1644; J2250; J3010; J7030; J7050; Q9967

== ENCOUNTER → 2021-04-05 | Outpatient (CLI) | payer MEDICARE | END | disposition home or self-care (01) | LOC: LAB SHORT 11:30 → LAB 11:30 | DX: Z48.89 Encounter for other specified surgical aftercare (principal); L97.519 Non-pressure chronic ulcer of other part of right foot with unspecified severity | CPT/HCPCS: 87070; 87077; 87186; 87205 ==

== ENCOUNTER → 2021-06-16 | Outpatient (CLI) | payer MEDICARE | END | disposition home or self-care (01) | LOC: LAB SHORT 08:52 → LAB 08:52 | DX: L97.509 Non-pressure chronic ulcer of other part of unspecified foot with unspecified severity (principal) | CPT/HCPCS: 87070; 87075; 87205 ==

== ENCOUNTER → 2021-10-11 | Outpatient (CLI) | payer MEDICARE, OTHER | END | disposition home or self-care (01) | LOC: LAB SHORT 08:05 | DX: M20.41 Other hammer toe(s) (acquired), right foot (principal) | CPT/HCPCS: 88305; 88311 ==

== ENCOUNTER 2022-01-30 05:23 | Inpatient (IN) | payer MEDICARE, OTHER ==
[~2022-01-30] VITALS: Ht 185.4 cm; Wt 132.0 kg
[2022-01-30 05:43] LABS: BASOPHILS ABSOLUTE AUTO 0.05 K/mm3 (0.00-0.23); BASOPHILS PERCENT AUTO 1 % (0-2); EOSINOPHILS ABSOLUTE AUTO 0.11 K/mm3 (0.00-0.68); EOSINOPHILS PERCENT AUTO 2 % (0-6); Hematocrit 43.5 % (37.0-53.0); Hemoglobin 14.1 g/dL (13.5-17.5); IMMATURE GRAN ABSOLUTE AUTO 0.03 K/mm3 (0.00-0.10); IMMATURE GRAN PERCENT AUTO 1 % (0-1); LYMPHOCYTES ABSOLUTE AUTO 1.24 K/mm3 (0.84-5.20); LYMPHOCYTES PERCENT AUTO 21 % (21-46); MONOCYTES ABSOLUTE AUTO 0.57 K/mm3 (0.16-1.47); MONOCYTES PERCENT AUTO 10 % (4-13); Mean Corpuscular HGB 28.5 pg (26.0-34.0); Mean Corpuscular HGB Conc 32.4 g/dL (31.5-36.5); Mean Corpuscular Volume 88 fL (80-100); Mean Platelet Volume 10.9 fL (9.1-12.4); NEUTROPHILS ABSOLUTE AUTO 4.02 K/mm3 (1.96-9.15); NEUTROPHILS PERCENT AUTO 67 % (41-73); Platelet Count 190 K/mm3 (150-400); RDW Coefficient Variation 13.9 % (11.7-14.2); RDW Standard Deviation 44.6 fL (35.1-46.3); Red Blood Cell Count 4.94 M/mm3 (4.30-5.90); White Blood Cell Count 6.02 K/mm3 (4.00-11.30)
[2022-01-30 06:22] LABS: Albumin, Blood 3.7 g/dL (3.4-5.0); Albumin/Globulin Ratio 0.9 (0.8-1.8); Bilirubin, Total 0.3 mg/dL (0.1-1.0); Bun/Creatinine Ratio 32.4 (12.0-20.0); Calcium, Blood 8.8 mg/dL (8.5-10.1); Creatinine, Blood 0.74 mg/dL (0.60-1.20); Globulin, Blood 3.9 g/dL (2.2-4.0); Total Protein, Blood 7.6 g/dL (6.4-8.2)
[2022-01-30] MEDS ORDERED: COREG25 MG PO (10:12)
[2022-01-30] MEDS ORDERED: ISOSORBIDE MONO30 MG PO (10:13)
[2022-01-30] MEDS ORDERED: FERSU300 PO (12:08)
[2022-01-30 12:55] LABS: Anti-Xa UFH, PHA Monitoring <0.10 IU/mL; International Normalized Ratio 1.04; Prothrombin Time Results 10.9 Sec (9.7-11.5)
--- NOTE | 2022-01-30 15:02 | NUR ---
REQUEST FOR RECORDS FROM [facility] FAXED TO [phone].
--- NOTE | 2022-01-30 17:47 | NUR ---
SHIFT SUMMARY: NO ACUTE EVENTS. NO CHEST DISCOMFORT REPORTED SINCE ARRIVAL FROM ED. TELEMETRY SHOWS SR WITH PVC'S IN 80'S. LUNGS CLEAR, IS ON 1 L/MIN NC "FOR COMFORT." HEPARIN INFUSING @ 15 UNITS/KG/HR (30.3 ML/HR). AMBULATING TO BR INDEPENDENTLY. CARDIAC ECHO COMPLETE. HAD VISITS FROM SEVERAL FAMILY MEMBERS. TRANSFUSION AIDE SAW PATIENT; WAITING FOR ANGIOGRAM RECORDS FROM [facility] BEFORE DECIDING NEXT STEP.
[2022-01-31 03:17] LABS: BASOPHILS ABSOLUTE AUTO 0.06 K/mm3 (0.00-0.23); BASOPHILS PERCENT AUTO 1 % (0-2); EOSINOPHILS ABSOLUTE AUTO 0.07 K/mm3 (0.00-0.68); EOSINOPHILS PERCENT AUTO 1 % (0-6); Hematocrit 43.8 % (37.0-53.0); IMMATURE GRAN ABSOLUTE AUTO 0.03 K/mm3 (0.00-0.10); IMMATURE GRAN PERCENT AUTO 0 % (0-1); LYMPHOCYTES ABSOLUTE AUTO 1.53 K/mm3 (0.84-5.20); LYMPHOCYTES PERCENT AUTO 23 % (21-46); MONOCYTES ABSOLUTE AUTO 0.63 K/mm3 (0.16-1.47); MONOCYTES PERCENT AUTO 9 % (4-13); Mean Corpuscular HGB 27.7 pg (26.0-34.0); Mean Corpuscular Volume 87 fL (80-100); Mean Platelet Volume 10.5 fL (9.1-12.4); NEUTROPHILS ABSOLUTE AUTO 4.36 K/mm3 (1.96-9.15); NEUTROPHILS PERCENT AUTO 65 % (41-73); Platelet Count 199 K/mm3 (150-400); RDW Coefficient Variation 13.8 % (11.7-14.2); RDW Standard Deviation 43.7 fL (35.1-46.3); Red Blood Cell Count 5.06 M/mm3 (4.30-5.90); White Blood Cell Count 6.68 K/mm3 (4.00-11.30)
[2022-01-31 03:47] LABS: Magnesium, Blood 1.8 mg/dL (1.6-2.4)
[2022-01-31 03:48] LABS: Albumin, Blood 3.6 g/dL (3.4-5.0); Anion Gap 7 mmol/L (6-16); Blood Urea Nitrogen 15 mg/dL (8-24); CO2, Blood 30 mmol/L (21-32); Calcium, Blood 9.3 mg/dL (8.5-10.1); Chloride, Blood 102 mmol/L (98-108); Glomerular Filtration Rate 107 (60-); Glucose, Blood 209 mg/dL (70-99); Phosphorus, Blood 3.1 mg/dL (2.5-4.9); Potassium, Blood 3.9 mmol/L (3.5-5.5); Sodium, Blood 139 mmol/L (136-145)
--- NOTE | 2022-01-31 06:19 | NUR ---
SHIFT SUMMARY: PATIENT DENIES ANY CP/DISCOMFORT/SOB. PATIENT HEP GTT TITRATED PER PHARMACY. NEW IV PLACED PREVIOUS ONE WAS PULLED ACCIDENTELY BY PATIENT. NO LONGER REQUIRING O2. ABLE TO AMBULATE TO BATHROOM INDEPENDENTLY, STEADY ON FEET. KNOWS TO CALL STAFF WITH ANY ACUTE CHANGES. NO SIGNIFICANT EVENTS ON NOC.
--- NOTE | 2022-01-31 10:39 | NUR ---
PATIENT IS NPO AT STARTING AT THIS TIME, IN PREP FOR AN ANGIOGRAM/ HEPARIN WAS JUST INCREASED TO 21, AND PATIENT WAS GIVEN A BOLUS OF 2500. TROP. TRENDING DOWN ALTHOUGH STILL ELEVATED.
--- NOTE | 2022-01-31 10:56 | NUR ---
CHANGE OF PLANS FOR CARDIAC MANAGEMENT. NO ANGIOGRAM WILL BE DONE. PATIENT IS MEDICAL MANAGEMENT ONLY FOR TREATMENT. PATIENT IS AGAIN ABLE TO EAT/DRINK AND HE WAS UPDATED.
--- NOTE | 2022-01-31 16:22 | NUR ---
Spiritual care referral received and processed. Pt is sitting on a chair and alert. Patient immediately tells me about the challenges and stressors that he is facing. His medical problems, his 's medical issues, the very recent of his [id number] are the big strossors that have disrupted his peace a bit. His family came in and cut our visit short so I provided prayer and let them visit. Pt was visibly moved by the prayer and showed signs of having increased peace because of it. I will continue to remain available to patient and family.
--- NOTE | 2022-01-31 18:23 | NUR ---
PATIENT STATES HE FEELS PRETTY GOOD. HE DID COMPLAIN OF A CAFFINE HEADACHE TODAY. HEPARIN IS RUNNING AT 21 UNITS/KG/HR AND IS TOLERATED WELL. A ONE TIME DOSE OF PLAVIX WAS JUST ADMINISTERED. DR. BREWER WAS CONSULTING WITH DR. DICKEY FOR CARDIAC CARE. MEDICAL RECORDS FROM [facility] WERE RECIEVED AND REVIEWED BY THE PROVIDERS.
--- NOTE | 2022-02-01 06:08 | NUR ---
SHIFT SUMMARY: NO SIGNIFCANT EVENTS ON NOC. DENIES CP/DISCOMFORT. REMAINS ON HEP GTT TIRTATING PER PHARMACY. STAYED UP FAIRLY LATE ON PHONE CALLS WITH FAMILY. ONCE HE FELL ASLEEP APPROX 0030 HE SLEPT THROUGH THE NIGHT.
[2022-02-01 08:15] LABS: BASOPHILS ABSOLUTE AUTO 0.04 K/mm3 (0.00-0.23); BASOPHILS PERCENT AUTO 1 % (0-2); EOSINOPHILS ABSOLUTE AUTO 0.07 K/mm3 (0.00-0.68); EOSINOPHILS PERCENT AUTO 1 % (0-6); Hematocrit 40.1 % (37.0-53.0); Hemoglobin 13.3 g/dL (13.5-17.5); IMMATURE GRAN ABSOLUTE AUTO 0.02 K/mm3 (0.00-0.10); IMMATURE GRAN PERCENT AUTO 0 % (0-1); LYMPHOCYTES ABSOLUTE AUTO 1.16 K/mm3 (0.84-5.20); LYMPHOCYTES PERCENT AUTO 23 % (21-46); MONOCYTES ABSOLUTE AUTO 0.51 K/mm3 (0.16-1.47); MONOCYTES PERCENT AUTO 10 % (4-13); Mean Corpuscular HGB 28.5 pg (26.0-34.0); Mean Corpuscular HGB Conc 33.2 g/dL (31.5-36.5); Mean Corpuscular Volume 86 fL (80-100); Mean Platelet Volume 10.6 fL (9.1-12.4); NEUTROPHILS ABSOLUTE AUTO 3.26 K/mm3 (1.96-9.15); NEUTROPHILS PERCENT AUTO 64 % (41-73); Platelet Count 170 K/mm3 (150-400); RDW Coefficient Variation 13.7 % (11.7-14.2); RDW Standard Deviation 43.1 fL (35.1-46.3); Red Blood Cell Count 4.66 M/mm3 (4.30-5.90); White Blood Cell Count 5.06 K/mm3 (4.00-11.30)
[2022-02-01 08:35] LABS: Magnesium, Blood 1.5 mg/dL (1.6-2.4)
[2022-02-01 08:36] LABS: Albumin, Blood 3.4 g/dL (3.4-5.0); Anion Gap 8 mmol/L (6-16); Blood Urea Nitrogen 16 mg/dL (8-24); Bun/Creatinine Ratio 24.2 (12.0-20.0); CO2, Blood 26 mmol/L (21-32); Chloride, Blood 104 mmol/L (98-108); Creatinine, Blood 0.66 mg/dL (0.60-1.20); Glomerular Filtration Rate 104 (60-); Glucose, Blood 200 mg/dL (70-99); Phosphorus, Blood 3.4 mg/dL (2.5-4.9); Potassium, Blood 3.8 mmol/L (3.5-5.5); Sodium, Blood 138 mmol/L (136-145)
[2022-02-01] MEDS ORDERED: AMLO10 PO (13:06)
[2022-02-01] MEDS ORDERED: ATOR40TA PO (13:09)
[2022-02-01] MEDS ORDERED: INSULIN AS100 UNIT/6 SC (13:13)
[2022-02-01] MEDS ORDERED: TOUJEO SOL300 UNIT/2 SC (13:16)
[2022-02-01] MEDS ORDERED: Isosorbide Mono30 MG PO (13:20)
[2022-02-01] MEDS ORDERED: CLOP75 PO (13:22)
[2022-02-01] MEDS ORDERED: RANO500T PO (13:22)
[2022-02-01] MEDS ORDERED: ESCI10 PO (13:51)
--- NOTE | 2022-02-01 15:35 | NUR ---
PATIENT DISCHARGED AROUND 1430 TODAY. IV WAS REMOVED, TELEMETRY WAS DISCONTINUED AND DISCHARGE ORDERS WERE REVIEWED WITH PATIENT. MEDICATIONS WERE FAXED TO [facility]. THE PATIENTS PICKED HIM UP AND BROUGHT HIM HOME. HE WILL FOLLOW UP WITH PRIMARY CARE, CARDIOLOGY AND CARDIAC REHAB IN THE NEAR FUTURE.
== END 2022-02-01 14:50 | disposition home or self-care (01) | DRG 303 ==
LOC: ER 05:23 → MEDS 05:24
PROVIDERS: Emergency Medicine; ADMIT Family Medicine
DX: I25.710 Atherosclerosis of autologous vein coronary artery bypass graft(s) with unstable angina pectoris (principal); I24.9 Acute ischemic heart disease, unspecified; I50.30 Unspecified diastolic (congestive) heart failure; E78.5 Hyperlipidemia, unspecified; I11.0 Hypertensive heart disease with heart failure; M10.9 Gout, unspecified; K21.9 Gastro-esophageal reflux disease without esophagitis; E11.51 Type 2 diabetes mellitus with diabetic peripheral angiopathy without gangrene; Z91.09 Other allergy status, other than to drugs and biological substances; Z79.82 Long term (current) use of aspirin; Z79.84 Long term (current) use of oral hypoglycemic drugs; Z79.4 Long term (current) use of insulin; Z79.899 Other long term (current) drug therapy; Z95.1 Presence of aortocoronary bypass graft; Z88.7 Allergy status to serum and vaccine
CPT/HCPCS: 36415; 71045; 80053; 80069; 82947; 83690; 83735; 83880; 84484; 85025; 85520; 85610; 93005; 93010; 94762; 96365; 96366; 99285-25; A9270; C8929; G0378; J1644; J1815; Q9957

== ENCOUNTER 2023-09-22 19:04 | Emergency (ER) | payer OTHER, MEDICARE ==
[~2023-09-22] VITALS: Ht 193 cm; Wt 113.4 kg
[~2023-09-22 19:04] MED LIST changes: +AMLO10 PO; +ATOR40TA PO; +CLOP75 PO; +COREG25 MG PO; +ESCI10 PO; +FERSU300 PO; +INSULIN AS100 UNIT/6 SC; +ISOSORBIDE MONO30 MG PO; +Isosorbide Mono30 MG PO; +RANO500T PO; +TAMS.4ER PO
== END 2023-09-22 22:38 ==
LOC: ER 19:04
DX: I46.9 Cardiac arrest, cause unspecified (principal); E11.9 Type 2 diabetes mellitus without complications; I25.10 Atherosclerotic heart disease of native coronary artery without angina pectoris; Z88.8 Allergy status to other drugs, medicaments and biological substances; Z88.7 Allergy status to serum and vaccine; Z79.899 Other long term (current) drug therapy; Z79.84 Long term (current) use of oral hypoglycemic drugs; Z79.4 Long term (current) use of insulin; Z79.82 Long term (current) use of aspirin
CPT/HCPCS: 31500; 92950; 94002; 96374-59; 96375-59; 99285-25